=== PATIENT | female | born 1955 | race Caucasian/White ===

== ENCOUNTER → 2019-06-20 | Outpatient (CLI) | payer MEDICARE ==
[~2019-06-20] MED LIST: GADOTERATE 10 MMOL/20 ML SYR ONE
== END | disposition home or self-care (01) ==
LOC: RAD 07:27
PROVIDERS: ATTEND Pain Medicine Interventional Pain Medicine
DX: M47.22 Other spondylosis with radiculopathy, cervical region (principal); M43.22 Fusion of spine, cervical region; M25.78 Osteophyte, vertebrae; M48.02 Spinal stenosis, cervical region; M50.221 Other cervical disc displacement at C4-C5 level; M47.26 Other spondylosis with radiculopathy, lumbar region; M96.1 Postlaminectomy syndrome, not elsewhere classified; M79.7 Fibromyalgia; J44.9 Chronic obstructive pulmonary disease, unspecified; G43.909 Migraine, unspecified, not intractable, without status migrainosus; E11.42 Type 2 diabetes mellitus with diabetic polyneuropathy
CPT/HCPCS: 72040; 72156; A9575

== ENCOUNTER → 2020-08-26 | Outpatient (CLI) | payer MEDICARE | END | disposition home or self-care (01) | LOC: RAD 08:35 | PROVIDERS: ATTEND Internal Medicine Gastroenterology | DX: K22.8 Other specified diseases of esophagus (principal); R13.19 Other dysphagia; K59.00 Constipation, unspecified; R12 Heartburn; K92.1 Melena | CPT/HCPCS: 74220 ==

== ENCOUNTER → 2020-09-02 | Outpatient (CLI) | payer MEDICARE ==
[~2020-09-02] MED LIST changes: +ACET-76 PO; +ALBU8.5H8 INH; +AMLO2.5T5 PO; +ASPI-1026 PO; +ATOR-2 PO; +BACL-19 PO; +CHOL10003 PO; +CRIS60OI TD; +EMPA25TA PO; +FLUC150T2 PO; +FLUT1BLS INH; +GABA800T5 PO; -GADOTERATE 10 MMOL/20 ML SYR ONE; +HYDR4TAB PO; +LEVO150T5 PO; +LEVO5TAB29 PO; +LORA-247 PO; +MELO15TA24 PO; +METF-754 PO; +NITR100C6 PO; +PIOG30TA68 PO; +SUMA25TA4 PO; +VENL150C6 PO; +VENL75TA2 PO; +clotrimazole; +narcan INJ; +ozempic INJ
[2020-09-03 08:14] LABS: ALANINE AMINOTRANSFERASE 34 U/L (12-78); ALBUMIN 4.9 g/dL (3.4-5.0); ANION GAP 8 mmol/L (5-15); CHLORIDE 104 mmol/L (98-107)
[2020-09-03 08:17] LABS: ALKALINE PHOSPHATASE 159 U/L (45-117); BILIRUBIN,TOTAL 0.6 mg/dL (0.2-1.0); TOTAL PROTEIN 9.7 g/dL (6.4-8.2)
== END | disposition home or self-care (01) ==
LOC: STAR 08:36
PROVIDERS: ATTEND Internal Medicine Gastroenterology
DX: Z01.818 Encounter for other preprocedural examination (principal); R13.19 Other dysphagia; I45.10 Unspecified right bundle-branch block; R00.8 Other abnormalities of heart beat; Z20.822 Contact with and (suspected) exposure to COVID-19
CPT/HCPCS: 36415; 80053; 93005; U0003

== ENCOUNTER 2020-09-06 05:18 | Day surgery (SDC) | payer MEDICARE ==
[~2020-09-06] VITALS: Ht 157.5 cm; Wt 124.6 kg
[2020-09-06] MEDS ORDERED: LACTATED RINGERS 1,000 ML IV SCH (06:00)
[2020-09-06] MEDS ORDERED: CHLORHEXIDINE 15 ML UDC PO ONE (06:00)
[2020-09-06 06:01] VITALS: BP 125/81
[2020-09-06] MEDS ORDERED: PROPOFOL 10 MG/ML, 20ML ONE ×6 (08:18→08:35)
== END 2020-09-06 09:55 | disposition home or self-care (01) ==
LOC: OUT 05:18
PROVIDERS: ATTEND Internal Medicine Gastroenterology
DX: D12.5 Benign neoplasm of sigmoid colon (principal); K64.8 Other hemorrhoids; K29.70 Gastritis, unspecified, without bleeding; K20.80 Other esophagitis without bleeding; K92.1 Melena; K44.9 Diaphragmatic hernia without obstruction or gangrene; E11.9 Type 2 diabetes mellitus without complications; I10 Essential (primary) hypertension; F32.9 Major depressive disorder, single episode, unspecified; E03.9 Hypothyroidism, unspecified; G43.909 Migraine, unspecified, not intractable, without status migrainosus; F41.9 Anxiety disorder, unspecified; J44.9 Chronic obstructive pulmonary disease, unspecified; Z88.1 Allergy status to other antibiotic agents; Z88.3 Allergy status to other anti-infective agents; Z88.2 Allergy status to sulfonamides; Z88.7 Allergy status to serum and vaccine; Z88.8 Allergy status to other drugs, medicaments and biological substances; Z91.018 Allergy to other foods; Z91.048 Other nonmedicinal substance allergy status; Z79.82 Long term (current) use of aspirin; Z79.899 Other long term (current) drug therapy; Z98.890 Other specified postprocedural states
CPT/HCPCS: 43239; 43248; 45380; 82962; 88305; J2704; J7120